=== PATIENT | female | born 1970 | race Caucasian/White ===

== ENCOUNTER 2016-11-06 15:13 | Emergency (ER) | payer OTHER ==
[~2016-11-06] VITALS: Ht 162.5 cm; Wt 68.0 kg
[2016-11-06] MEDS ORDERED: FENTANYL T12.5 MCG/H TD (15:32)
[2016-11-06] MEDS ORDERED: SYNTHROID25 MCG PO (15:32)
[2016-11-06] MEDS ORDERED: LYRICA25 M1 PO (15:32)
[2016-11-06] MEDS ORDERED: SEROQUEL25 MG PO (15:33)
[2016-11-06] MEDS ORDERED: Motrin,Rufen800 MG PO (17:28)
== END 2016-11-06 17:32 | disposition home or self-care (01) ==
LOC: ED 15:13
DX: S16.1XXA Strain of muscle, fascia and tendon at neck level, initial encounter (principal); S00.93XA Contusion of unspecified part of head, initial encounter; S39.012A Strain of muscle, fascia and tendon of lower back, initial encounter; Z88.6 Allergy status to analgesic agent; Z90.49 Acquired absence of other specified parts of digestive tract; Z90.710 Acquired absence of both cervix and uterus; V87.7XXA Person injured in collision between other specified motor vehicles (traffic), initial encounter; Y93.89 Activity, other specified; Y92.413 State road as the place of occurrence of the external cause; Y99.9 Unspecified external cause status